=== PATIENT | female | born 2000 | race African-American/Black ===

== ENCOUNTER 2022-05-26 23:54 | Emergency (ER) | payer OTHER | END 2022-05-27 01:05 | disposition home or self-care (01) | LOC: MW.ED 23:54 | DX: J02.9 Acute pharyngitis, unspecified (principal); Z79.899 Other long term (current) drug therapy; Z20.822 Contact with and (suspected) exposure to COVID-19 | CPT/HCPCS: 87651-QW; 99283; U0002 ==